=== PATIENT | male | born 1950 | race Caucasian/White ===

== ENCOUNTER 2019-09-29 13:37 | Emergency (ER) | payer MEDICARE ==
--- NOTE | 2019-09-29 15:03 | EDM.PDOC ---
ED HPI GENERAL MEDICAL PROBLEM - General Chief Complaint: Gastrointestinal Problem Stated Complaint: CONSTIPATION Time Seen by Provider: 09/29/19 13:56 Source of Information: Reports: Patient, RN Notes Reviewed History Limitations: Reports: No Limitations - History of Present Illness INITIAL COMMENTS - FREE TEXT/NARRATIVE: The patient is a 69-year-old male who presents to the ED for a couple different complaints. The patient states that for quite some time he has been having issues retracting his foreskin, and notices some tenderness and redness to the area, he also complains of some mild drainage noted as well. He notes that he is not been able to retract the foreskin over the head of his penis in quite some time, he does try to keep this clean with Q-tips. He states that he tried some [id number] Vagisil on this seemed to clear this up a little bit, however he did not keep up with this. The patient also is complaining of constipation, he states that he has felt this way for about 1 week now. His last real bowel movement was about 3 days ago after he tried drinking some prune juice. He is also complaining of some lower back pain on the left lower side, he is not having any nausea or vomiting. Patient states that he his testicles also are a little sore. The patient notes he does not have a primary care provider, and he has not had any preventative maintenance checks done in quite some time. He is not sure when his last colonoscopy was. He will further notes a semi-intentional weight loss of around 70 pounds over the last 4 years. Patient is not complaining of any fevers or chills, any chest pain, or shortness of breath. He states from time to time he does have some increased pressure on his testicles, and he feels if someone is "squeezing them ". Otherwise he is not complaining of any dysuria, frequency or urgency. He does note that he is not had any change in caliber of his stools as well, but states he goes in just a little bit's. He is also not had his prostate checked in quite some time. He does note a history of diabetes, migraines. States he has not been on medications for these for quite some time as he has been without a primary care provider. Generalized Pain Score (Numeric/FACES): 8 - Related Data Allergies Allergy/AdvReac Type Severity Reaction Status Date / Time No Known Allergies Allergy Verified 09/29/19 13:53 Home Meds: Home Meds Sulfamethoxazole/Trimethoprim [Sulfamethoxazole-Tmp Ds Tablet] 1 each PO BID # 14 tablet 09/29/19 [Rx] metFORMIN [Glucophage] 500 mg PO BIDMEALS #60 tab 09/29/19 [Rx] Past Medical History Neurological History: Reports: Migraines Endocrine/Metabolic History: Reports: Diabetes, Type II - Past Surgical History HEENT Surgical History: Reports: Tonsillectomy Social & Family History - Tobacco Use Smoking Status *Q: Never Smoker Second Hand Smoke Exposure: Yes - Caffeine Use Caffeine Use: Reports: Soda, Tea - Alcohol Use Alcohol Use History: Yes Alcohol Use Frequency: Rarely - Recreational Drug Use Recreational Drug Use: Yes Drug Use in Last 12 Months: Yes Recreational Drug Type: Reports: Marijuana/Hashish Recreational Drug Use Frequency: Rarely ED ROS GENERAL - Review of Systems Review Of Systems: See Below Constitutional: Denies: Fever, Chills Respiratory: Denies: Shortness of Breath Cardiovascular: Denies: Chest Pain GI/Abdominal: Reports: Abdominal Pain (cramping/pressure type pain when he feels the need to have BM). Denies: Nausea, Vomiting : Reports: Discharge (white milky discharge), Pain (testicular tenderness, bilateral). Denies: Dysuria, Frequency, Urgency Musculoskeletal: Reports: Back Pain (L lower back pain) ED EXAM, RENAL/ - Physical Exam Exam: See Below Exam Limited By: No Limitations General Appearance: Alert, WD/WN, No Apparent Distress Eye Exam: Bilateral Eye: EOMI, Normal Inspection, PERRL Ears: Normal External Exam Nose: Normal Inspection Throat/Mouth: Normal Inspection, Normal Lips, Normal Teeth, Normal Gums, Normal Oropharynx, Normal Voice, No Airway Compromise Head: Atraumatic, Normocephalic Neck: Normal Inspection Respiratory/Chest: No Respiratory Distress, Lungs Clear, Normal Breath Sounds, No Accessory Muscle Use, Chest Non-Tender Cardiovascular: Normal Peripheral Pulses, Regular Rate, Rhythm, No Murmur GI/Abdominal: Normal Bowel Sounds, Soft, No Distention, No Mass, Tender ( suprapubic, lower abdomen tenderness) (Male) Exam: No Hernia, Testicular Tenderness (L), Testicular Tenderness (R) , Other (Patient is on circumcised, I did try to retract the foreskin, while doing so there was a scant amount of milky white discharge that was expressed. I was still not able to visualize the glans penis. This did not cause too much pain to the patient with manipulation.). No: Scrotal Swelling Extremities: Normal Inspection, Normal Capillary Refill Neurological: Alert, Oriented, Normal Cognition, No Motor/Sensory Deficits Psychiatric: Normal Affect, Normal Mood Skin Exam: Warm, Dry, Intact, Normal Color, No Rash Course - Orders/Labs/Meds Orders: Active Orders 24 hr Category Date Time Status CULTURE URINE [RM] Routine Lab 09/29/19 16:10 Ordered Labs: Laboratory Tests 09/29/19 09/29/19 09/29/19 Range/Units 14:49 14:49 15:15 WBC 6.58 (4.23-9.07) K/mm3 RBC 5.32 (4.63-6.08) M/mm3 Hgb 15.0 (13.7-17.5) gm/dl Hct 44.3 (40.1-51.0) % MCV 83.3 (79.0-92.2) fl MCH 28.2 (25.7-32.2) pg MCHC 33.9 (32.2-35.5) g/dl RDW Std Deviation 41.9 (35.1-43.9) fL Plt Count 189 (163-337) K/mm3 MPV 9.2 L (9.4-12.3) fl Neut % (Auto) 61.2 (34.0-67.9) % Lymph % (Auto) 27.5 (21.8-53.1) % [place] % (Auto) 8.8 (5.3-12.2) % Eos % (Auto) 1.7 (0.8-7.0) Baso % (Auto) 0.5 (0.1-1.2) % Neut # (Auto) 4.03 (1.78-5.38) K/mm3 Lymph # (Auto) 1.81 (1.32-3.57) K/mm3 [place] # (Auto) 0.58 (0.30-0.82) K/mm3 Eos # (Auto) 0.11 (0.04-0.54) K/mm3 Baso # (Auto) 0.03 (0.01-0.08) K/mm3 Sodium 138 (136-145) mEq/L Potassium 4.3 (3.5-5.1) mEq/L Chloride 100 (98-107) mEq/L Carbon Dioxide 28 (21-32) mEq/L Anion Gap 14.3 (5-15) BUN 20 H (7-18) mg/dL Creatinine 1.0 (0.7-1.3) mg/dL Est Cr Clr Drug Dosing 73.00 mL/min Estimated GFR (MDRD) > 60 (>60) mL/min BUN/Creatinine Ratio 20.0 H (14-18) Glucose 360 H (80-115) mg/dL Calcium 8.9 (8.5-10.1) mg/dL Total Bilirubin 0.3 (0.2-1.0) mg/dL AST 10 L (15-37) U/L ALT 24 (16-63) U/L Alkaline Phosphatase 117 H (46-116) U/L Total Protein 7.3 (6.4-8.2) g/dl Albumin 3.4 (3.4-5.0) g/dl Globulin 3.9 gm/dL Albumin/Globulin Ratio 0.9 L (1-2) Urine Color Yellow (Yellow) Urine Appearance Clear (Clear) Urine pH 7.0 (5.0-8.0) Ur Specific [place] 1.020 (1.005-1.030) Urine Protein Trace H (Negative) Urine Glucose (UA) 2+ H (Negative) Urine Ketones Negative (Negative) Urine Occult Blood Trace-intact H (Negative) Urine Nitrite Negative (Negative) Urine Bilirubin Negative (Negative) Urine Urobilinogen 0.2 (0.2-1.0) Ur Leukocyte Esterase 1+ H (Negative) Urine RBC 5-10 H (0-5) /hpf Urine WBC 50-75 H (0-5) /hpf Ur Squamous Epith Cells 0-5 (0-5) /hpf Urine Bacteria Moderate H (FEW) /hpf Urine Mucus Not seen (FEW) /hpf Meds: Medications Discontinued Medications Generic Name Dose Route Start Last Admin Trade Name Freq PRN Reason Stop Dose Admin Fluconazole 150 mg 09/29/19 16:29 Diflucan PO 09/29/19 16:30 ONETIME ONE Magnesium Citrate 296 ml 09/29/19 16:29 Citrate Of Magnesia PO 09/29/19 16:30 ONETIME ONE - Re-Assessments/Exams Free Text/Narrative Re-Assessment/Exam: 09/29/19 15:08 Patient presents to the ED for a couple different complaints. I suspect he has some sort of yeast type infection, and ultimately the patient will need a circumcision for relief of his symptoms. As for the patient's constipation, I have ordered a KUB for evaluation, CBC, CMP, urinalysis, and a scrotal ultrasound will also be obtained due to the patient's testicular tenderness. Patient reports symptomatic relief when he took some [id number] vaginal infection medication, that he thought was vagisil, but this was only for a few days. 09/29/19 16:32 Patient's laboratory evaluation comes back and is unremarkable except for his urinalysis results which demonstrates a UTI. Patient will be placed on Bactrim twice daily for 7 days, urine is sent for culture for confirmation. As stated above I suspect the patient has a yeast infection to his penis as well, he will given 1 tablet of Diflucan in the ER to see if this does not help relieve some of this. Blood sugar was also elevated at 368, the patient wishes not to have any medications given in the ER, but did accept a prescription for metformin 500 mg twice daily at this time. Patient's abdomen x-ray also demonstrates a moderate amount of stool within the colon, he will be given a bottle of mag citrate for this. Departure - Departure Time of Disposition: 16:33 Disposition: Home, Self-Care 01 Condition: Fair Clinical Impression: Foreskin problem UTI (urinary tract infection) Qualifiers: Urinary tract infection type: acute cystitis Hematuria presence: with hematuria Qualified Code(s): N30.01 - Acute cystitis with hematuria Constipation Qualifiers: Constipation type: other constipation type Qualified Code(s): K59.09 - Other constipation - Discharge Information *PRESCRIPTION DRUG MONITORING PROGRAM REVIEWED*: No *COPY OF PRESCRIPTION DRUG MONITORING REPORT IN PATIENT JODI: No Prescriptions: metFORMIN [Glucophage] 500 mg PO BIDMEALS #60 tab Sulfamethoxazole/Trimethoprim [Sulfamethoxazole-Tmp Ds Tablet] 1 each PO BID # 14 tablet Referrals: PCP,Not In Area [Primary Care Provider] - Forms: ED Department Discharge Additional Instructions: You were evaluated in the ER today for your possible constipation. You did have some labs drawn and a urinalysis taken. Your urinalysis was positive for UTI and you have been started on the antibiotic, trimethoprim/ sulfamethoxazole, 1 tab twice daily for the next 7 days. It is suspected that you have an infection of the foreskin as well, you were given a 1 dose of Diflucan in the ER for management of this. Please try to keep this area clean and dry as much as possible. Highly and strongly recommend you have this area evaluated by a surgeon or urologist for possible circumcision to help prevent future infections. Your blood sugar at today's visit was 360, but you state that you have not been on your regular diabetic medications. A prescription for metformin was provided on your behalf, 1 tablet twice daily with meals. You were also given a bottle of magnesium citrate to help relieve some of the constipation. Please drink one half bottle, if you do not have a rather large bowel movement in 4 to 5 hours time, repeat with the last half bottle. Further recommend that you increase your oral fluid intake, and try to incorporate MiraLAX into your daily routine as this will help keep your bowels regular. Recommend that you set up care with a primary care provider of choice, any family practice provider would be able to provide you with the services, recommend Dr. Mika August. Please call [phone] to set up an appointment for an ER follow-up, and discussion of preventative maintenance health test like colonoscopies, ETC. Please return to the ER at any time however if your symptoms change or worsen. Sepsis Event Note - Evaluation Sepsis Screening Result: No Definite Risk - Focused Exam Date Exam was Performed: 09/29/19 Time Exam was Performed: 16:32 - My Orders Last 24 Hours: My Active Orders 09/29/19 16:10 CULTURE URINE [RM] Routine - Assessment/Plan Last 24 Hours: My Active Orders 09/29/19 16:10 CULTURE URINE [RM] Routine
--- NOTE | 2019-09-29 15:58 | CR ---
Abdomen: Supine view of the abdomen was obtained. Comparison: No prior abdominal x-ray. Mild degenerative change is scattered within the spine as well as mild joint space narrowing within the right hip. Bowel gas pattern is normal. No abnormal calcifications or soft tissue abnormality is seen. Impression: 1. Findings which are believed to be incidental. 2. Nothing acute is appreciated on supine abdominal x-ray. Diagnostic code #2 This report was dictated in [place] Standard Time
--- NOTE | 2019-09-29 16:04 | US ---
Testicular ultrasound: Multiple real-time images of the testicles were obtained. Testicles have a homogeneous ultrasound appearance. No intratesticular abnormality is seen. Small hydroceles are seen on both sides. Epididymal cyst is noted on the left side measuring up to 1.0 cm. Both arterial and venous blood flow are seen within the testicles. No abnormal Doppler blood flow is seen. Measurements: Right testicle: 3.8 x 2.3 x 3.0 cm Left testicle: 3.5 x 1.5 x 2.7 cm Impression: 1. Small bilateral hydroceles. 2. 1.0 cm epididymal cyst on the left side. 3. No additional abnormality is seen. Diagnostic code #2 This report was dictated in [place] Standard Time
[2019-09-29] MEDS ORDERED: Magnesium Citrate Solution 296 ML Bottle PO ONE (16:29)
[2019-09-29] MEDS ORDERED: Fluconazole 150 MG Tab PO ONE (16:29)
== END 2019-09-29 16:56 | disposition home or self-care (01) ==
LOC: JD.ED 13:37
DX: N30.01 Acute cystitis with hematuria (principal); K59.09 Other constipation; N47.8 Other disorders of prepuce; E11.9 Type 2 diabetes mellitus without complications; Z79.84 Long term (current) use of oral hypoglycemic drugs
CPT/HCPCS: 36415; 74018; 76870; 80053; 81001; 85025; 87086; 93975; 99284; A9270

== ENCOUNTER 2019-12-17 13:49 | Emergency (ER) | payer MEDICARE, MEDICAID ==
[2019-12-17] MEDS ORDERED: Sodium Chloride 0.9% 10 ML Syringe FLUSH PRN (14:46)
--- NOTE | 2019-12-17 15:14 | CR ---
Chest: Frontal view of the chest was obtained. Comparison: No prior chest imaging is available. Heart size and mediastinum are normal. Lungs are clear with no acute parenchymal change. Minimal atelectasis within the lateral left costophrenic angle is noted. Bony structures are grossly intact. Impression: 1. Nothing acute is appreciated on frontal chest x-ray. Diagnostic code #2 This report was dictated in MDT
--- NOTE | 2019-12-17 15:14 | CR ---
Thoracic spine: AP, lateral and swimmer's views of the thoracic spine were obtained. Scattered disc space narrowing is noted throughout the thoracic spine. Vertebral body heights are maintained. Scattered anterior endplate osteophyte are seen throughout the thoracic spine. Pedicles are intact. Prevertebral soft tissues are normal. No subluxation or fracture is seen. Impression: 1. Scattered degenerative change. 2. Nothing acute is definitely appreciated. Diagnostic code #2 This report was dictated in MDT
--- NOTE | 2019-12-17 15:16 | CR ---
Left hip: AP and frog-leg lateral views left hip were obtained. Comparison: No previous study is available. Minimal joint space narrowing within the left hip is seen. No acute fracture or other abnormality is appreciated. Impression: 1. Mild joint space narrowing within the left hip. 2. Nothing acute is appreciated on 2 view left hip exam. Diagnostic code #2 This report was dictated in MDT
--- NOTE | 2019-12-17 15:29 | EDM.PDOC ---
ED HPI GENERAL MEDICAL PROBLEM - General Chief Complaint: Lower Extremity Injury/Pain Stated Complaint: WEAK LEFT LEG Time Seen by Provider: 12/17/19 13:55 Source of Information: Reports: Patient History Limitations: Reports: No Limitations - History of Present Illness INITIAL COMMENTS - FREE TEXT/NARRATIVE: Narayan Kay is a 69-year-old male who presents the emergency room with chief complaints of generalized weakness and body aches. Patient reports that he fell yesterday and fell a week ago. He reports that he is "constantly falling." Patient reports that he has been using a walker in the last week or 2. He states that he goes to get up in his left leg just gives out and he falls. He presents today with chief complaints of neck pain which is chronic, left hip pain, thoracic and lower back pain. He denies headache, fever, chills , chest pain, shortness of breath. He does report having blurred vision but has not had an eye exam in the last 4 years. Patient has a history of diabetes , hypertension, peripheral neuropathy and chronic neck pain. Patient reports he does not have a PCP he "has been seen here in the emergency room and they give him his medication." Patient has not taken his medication today and therefore his blood pressure is 206/110. He is no apparent distress at this time. Patient is on no blood thinners. Onset Date: 12/15/19 Onset Time: 09:00 Duration: Getting Worse Location: Reports: Neck, Back, Lower Extremity, Right, Other Quality: Reports: Ache Severity: Mild Improves with: Reports: None Worsens with: Reports: None Associated Symptoms: Reports: Shortness of Breath, Weakness. Denies: Chest Pain , Nausea/Vomiting Left Leg Pain Score (Numeric/FACES): 10 - Related Data Allergies Allergy/AdvReac Type Severity Reaction Status Date / Time No Known Allergies Allergy Verified 12/17/19 14:15 Home Meds: Home Meds Exenatide Microspheres [Bydureon] 2 mg SUBCUT Q7D 12/17/19 [History] Rosuvastatin [Crestor] 10 mg PO DAILY 12/17/19 [History] lisinopriL [Lisinopril] 20 mg PO DAILY 12/17/19 [History] metFORMIN [Glucophage] 1,000 mg PO BIDMEALS 12/17/19 [History] Past Medical History Neurological History: Reports: Migraines Endocrine/Metabolic History: Reports: Diabetes, Type II - Past Surgical History HEENT Surgical History: Reports: Tonsillectomy Social & Family History - Tobacco Use Smoking Status *Q: Never Smoker - Caffeine Use Caffeine Use: Reports: Soda - Recreational Drug Use Recreational Drug Use: Yes Drug Use in Last 12 Months: Yes Recreational Drug Type: Reports: Marijuana/Hashish Recreational Drug Use Frequency: Rarely Review of Systems - Review of Systems Review Of Systems: See Below Constitutional: Reports: Weakness. Denies: Chills, Fever Eyes: Reports: Blurred Vision, Glasses, Other (has not had a eye examination in over 4 years) Ears: Reports: No Symptoms Nose: Reports: No Symptoms Mouth/Throat: Reports: No Symptoms Respiratory: Denies: Shortness of Breath Cardiovascular: Denies: Chest Pain Genitourinary: Reports: No Symptoms Musculoskeletal: Reports: Neck Pain (chronic neck pain. ), Back Pain, Muscle Pain, Other (left hip pain. ) Skin: Reports: No Symptoms. Denies: Bruising Neurological: Reports: Numbness, Syncope, Weakness. Denies: Confusion, Dizziness, Headache (history of peripheral neuropathy. Patient reports falling twice this week.), Change in Speech Psychiatric: Reports: No Symptoms ED EXAM, GENERAL - Physical Exam Exam: See Below Exam Limited By: No Limitations General Appearance: Alert, WD/WN, No Apparent Distress Eye Exam: Bilateral Eye: EOMI, PERRL Ears: Normal External Exam, Normal Canal, Hearing Grossly Normal, Normal TMs Nose: Normal Inspection, Normal Mucosa, No Blood Throat/Mouth: Normal Inspection, Normal Lips, Normal Teeth, Normal Gums, Normal Oropharynx, Normal Voice, No Airway Compromise Head: Atraumatic, Normocephalic Neck: Normal Inspection, Supple, Non-Tender Respiratory/Chest: No Respiratory Distress, Lungs Clear, Normal Breath Sounds, No Accessory Muscle Use, Chest Non-Tender Cardiovascular: Normal Peripheral Pulses, Regular Rate, Rhythm, No Edema, No Gallop, No JVD, No Murmur, No Rub GI/Abdominal: Normal Bowel Sounds, Soft, Non-Tender, No Organomegaly, No Distention, No Abnormal Bruit, No Mass, Pelvis Stable Back Exam: Decreased Range of Motion (due to pain) Extremities: Normal Inspection, Non-Tender, No Pedal Edema, Normal Capillary Refill, Limited Range of Motion (due to pain and weakness) Neurological: Alert, Oriented, CN II-XII Intact, Normal Cognition, Normal Reflexes, No Motor/Sensory Deficits, Other (gait is slow and steady. ) Psychiatric: Normal Affect, Normal Mood Skin Exam: Warm, Dry, Intact, Normal Color, No Rash Lymphatic: No Adenopathy EKG INTERPRETATION EKG Date: 12/17/19 Time: 15:00 Rhythm: NSR Rate (Beats/Min): 96 EKG Interpretation Comments: EKG reveals normal sinus rhythm rate 96 with a right bundle branch block and LPFB Course - Vital Signs Text/Narrative:: Narayan Kay is a 69-year-old male who presents the emergency room with chief complaints of generalized weakness and body aches. Patient reports that he fell yesterday and fell a week ago. He reports that he is "constantly falling." Patient reports that he has been using a walker in the last week or 2. He states that he goes to get up in his left leg just gives out and he falls. He presents today with chief complaints of neck pain which is chronic, left hip pain, thoracic and lower back pain. He denies headache, fever, chills , chest pain, shortness of breath. He does report having blurred vision but has not had an eye exam in the last 4 years. Patient has a history of diabetes , hypertension, peripheral neuropathy and chronic neck pain. Patient reports he does not have a PCP he "has been seen here in the emergency room and they give him his medication." Patient has not taken his medication today and therefore his blood pressure is 206/110. He is no apparent distress at this time. Patient is on no blood thinners. I will medicate with lisinopril for elevated blood pressure. I will order a CBC basic met troponin, chest x-ray, left hip, thoracic, and lumbar spine. Last Recorded V/S: Last Vital Signs Temp 98.2 F 12/17/19 14:12 Pulse 97 12/17/19 14:12 Resp 20 12/17/19 14:12 BP 186/92 H 12/17/19 15:53 Pulse Ox 100 12/17/19 14:12 - Orders/Labs/Meds Orders: Active Orders 24 hr Category Date Time Status EKG Documentation Completion [RC] STAT Care 12/17/19 14:42 Active Holter Monitor 24 Hours [RC] .PRN Care 12/17/19 16:41 Ordered Sodium Chloride 0.9% [Saline Flush] Med 12/17/19 14:46 Active 10 ml FLUSH ASDIRECTED PRN lisinopriL [Prinivil] Med 12/17/19 15:30 Active 20 mg PO DAILY lisinopriL [Prinivil] Med 12/17/19 16:30 Active 20 mg PO DAILY Saline Lock Insert [OM.PC] Routine Oth 12/17/19 14:46 Ordered Medication Orders Lisinopril (Prinivil) 20 mg PO DAILY LARRY Last Admin: 12/17/19 15:53 Dose: 20 mg Lisinopril (Prinivil) 20 mg PO DAILY LARRY Sodium Chloride (Saline Flush) 10 ml FLUSH ASDIRECTED PRN PRN Reason: Keep Vein Open Last Admin: 12/17/19 15:23 Dose: 10 ml Labs: Laboratory Tests 12/17/19 12/17/19 12/17/19 Range/Units 15:19 15:19 15:25 WBC 7.95 (4.23-9.07) K/mm3 RBC 5.61 (4.63-6.08) M/mm3 Hgb 15.7 (13.7-17.5) gm/dl Hct 45.9 (40.1-51.0) % MCV 81.8 (79.0-92.2) fl MCH 28.0 (25.7-32.2) pg MCHC 34.2 (32.2-35.5) g/dl RDW Std Deviation 41.5 (35.1-43.9) fL Plt Count 221 (163-337) K/mm3 MPV 9.0 L (9.4-12.3) fl Neut % (Auto) 64.5 (34.0-67.9) % Lymph % (Auto) 24.4 (21.8-53.1) % Elk % (Auto) 8.8 (5.3-12.2) % Eos % (Auto) 1.8 (0.8-7.0) Baso % (Auto) 0.1 (0.1-1.2) % Neut # (Auto) 5.13 (1.78-5.38) K/mm3 Lymph # (Auto) 1.94 (1.32-3.57) K/mm3 Elk # (Auto) 0.70 (0.30-0.82) K/mm3 Eos # (Auto) 0.14 (0.04-0.54) K/mm3 Baso # (Auto) 0.01 (0.01-0.08) K/mm3 Sodium 138 (136-145) mEq/L Potassium 3.9 (3.5-5.1) mEq/L Chloride 101 (98-107) mEq/L Carbon Dioxide 30 (21-32) mEq/L Anion Gap 10.9 (5-15) BUN 14 (7-18) mg/dL Creatinine 0.9 (0.7-1.3) mg/dL Est Cr Clr Drug Dosing 78.56 mL/min Estimated GFR (MDRD) > 60 (>60) mL/min BUN/Creatinine Ratio 15.6 (14-18) Glucose 182 H (80-115) mg/dL Calcium 9.0 (8.5-10.1) mg/dL Total Bilirubin 0.4 (0.2-1.0) mg/dL AST 12 L (15-37) U/L ALT 19 (16-63) U/L Alkaline Phosphatase 92 (46-116) U/L Troponin I < 0.017 (0.00-0.056) ng/mL Total Protein 8.0 (6.4-8.2) g/dl Albumin 3.7 (3.4-5.0) g/dl Globulin 4.3 gm/dL Albumin/Globulin Ratio 0.9 L (1-2) Urine Color Yellow (Yellow) Urine Appearance Clear (Clear) Urine pH 6.0 (5.0-8.0) Ur Specific Barnett > or = 1.030 (1.005-1.030) Urine Protein 1+ H (Negative) Urine Glucose (UA) 2+ H (Negative) Urine Ketones Negative (Negative) Urine Occult Blood Negative (Negative) Urine Nitrite Negative (Negative) Urine Bilirubin Negative (Negative) Urine Urobilinogen 1.0 (0.2-1.0) Ur Leukocyte Esterase Negative (Negative) Urine RBC 0-5 (0-5) /hpf Urine WBC 0-5 (0-5) /hpf Ur Squamous Epith Cells 0-5 (0-5) /hpf Urine Bacteria Few (FEW) /hpf Urine Mucus Few (FEW) /hpf Meds: Medications Generic Name Dose Route Start Last Admin Trade Name Glen PRN Reason Stop Dose Admin Lisinopril 20 mg 12/17/19 15:30 12/17/19 15:53 Prinivil PO 20 mg DAILY LARRY Administration Lisinopril 20 mg 12/17/19 16:30 Prinivil PO DAILY LARRY Sodium Chloride 10 ml 12/17/19 14:46 12/17/19 15:23 Saline Flush FLUSH 10 ml ASDIRECTED PRN Administration Keep Vein Open Discontinued Medications Generic Name Dose Route Start Last Admin Trade Name Glen PRN Reason Stop Dose Admin Ketorolac Tromethamine 30 mg 12/17/19 16:03 12/17/19 16:20 Toradol IVPUSH 12/17/19 16:04 30 mg ONETIME ONE Administration - Re-Assessments/Exams Free Text/Narrative Re-Assessment/Exam: 12/17/19 15:59 BC 7.95, RBC 5.64, hemoglobin 15.7, hematocrit 45.9 and platelet count 221. Sodium 138, potassium 3.9, chloride 101, CO2 30, bun 14, creatinine 0.9, glucose 182, AST 12, ALT 19, troponin 0 0.017 and urine is +2 glucose. Thoracic spine x-ray reveals scattered degenerative changes no acute findings. Chest x-ray reveals minimal atelectasis within the left lateral costophrenic angle otherwise no acute findings. Left hip x-ray reveals mild joint space narrowing no acute fracture or abnormalities are appreciated. Lumbar spine reveals degenerative changes no sublux luxation or fracture is seen 12/17/19 16:46 Patient's labs and x-rays were reviewed I did not find any acute abnormalities. Not certain why the patient continues to have episodes of falling and not sure if this is due to his peripheral neuropathy or if it is cardiac in nature. Therefore I will discharge home with a Holter monitor for further evaluation. I informed the patient that it is recommended that he take his medication as prescribed. Since the patient has not taken his blood pressure medicine today and his blood pressure was extremely elevated. I will discharge home with instructions to follow-up with Dr. Mika August for further management and treatment of the patient's conditions. Instructed patient to return to the emergency room for any new acute worsening symptoms. Patient verbalized understanding this, plan for discharge. Departure - Departure Time of Disposition: 16:48 Disposition: Home, Self-Care 01 Condition: Good Clinical Impression: Weakness generalized, Hypertension Degenerative joint disease Qualifiers: Osteoarthritis location: hip Osteoarthritis type: primary Laterality: left Qualified Code(s): M16.12 - Unilateral primary osteoarthritis, left hip - Discharge Information Instructions: Hip Pain, Muscle Strain, [id number], Hypertension, Adult, Arthritis, Weakness, [id number] Referrals: PCP,None [Primary Care Provider] - Mika Clements MD [Physician] - Forms: ED Department Discharge Additional Instructions: Seen and evaluated today for generalized weakness and falling. In addition to lower back pain and left hip pain. Your EKG revealed normal sinus rhythm no irregular beats. You were very hypertensive when you were seen here in the emergency room department I recommend you take your blood pressure medication as prescribed. Your hip x-ray, lumbar and thoracic spine revealed degenerative joint disease which is a form of arthritis. I recommend that you follow-up with Dr. Mika August evaluation and treatment of your ailments. You have been prescribed a Holter monitor which she will wear for the next 24 hours. Follow- up with Dr. August for the results. Tylenol or Ibuprofen as needed for pain. Return to the emergency room for any new or acute worsening symptoms. Sepsis Event Note - Evaluation Sepsis Screening Result: No Definite Risk - Focused Exam Vital Signs: Vital Signs Temp Pulse Resp BP BP Pulse Ox 12/17/19 15:53 186/92 H 12/17/19 14:12 98.2 F 97 20 206/116 H 100 Date Exam was Performed: 12/17/19 Time Exam was Performed: 16:42 - My Orders Last 24 Hours: My Active Orders 12/17/19 14:42 EKG Documentation Completion [RC] STAT 12/17/19 14:46 Sodium Chloride 0.9% [Saline Flush] 10 ml FLUSH ASDIRECTED PRN Saline Lock Insert [OM.PC] Routine 12/17/19 15:30 lisinopriL [Prinivil] 20 mg PO DAILY 12/17/19 16:30 lisinopriL [Prinivil] 20 mg PO DAILY 12/17/19 16:41 Holter Monitor 24 Hours [RC] .PRN - Assessment/Plan Last 24 Hours: My Active Orders 12/17/19 14:42 EKG Documentation Completion [RC] STAT 12/17/19 14:46 Sodium Chloride 0.9% [Saline Flush] 10 ml FLUSH ASDIRECTED PRN Saline Lock Insert [OM.PC] Routine 12/17/19 15:30 lisinopriL [Prinivil] 20 mg PO DAILY 12/17/19 16:30 lisinopriL [Prinivil] 20 mg PO DAILY 12/17/19 16:41 Holter Monitor 24 Hours [RC] .PRN
[2019-12-17] MEDS ORDERED: Lisinopril 20 MG Tab PO SCH ×2 (15:30→16:30)
--- NOTE | 2019-12-17 15:43 | CR ---
Lumbar spine: AP and lateral views of the lumbar spine were obtained. Comparison: No previous lumbar spine imaging. Disc space narrowing is noted within the lower thoracic spine. Disc spaces within the lumbar spine are fairly well preserved. Scattered endplate osteophytes are seen. Posterior osteophytes are noted at L4-5. Pedicles are intact. Visualized transverse and spinous processes are intact. No subluxation or fracture is seen. Vascular calcification is noted within a nondilated abdominal aorta. Impression: 1. Degenerative change as noted above. 2. Nothing acute is appreciated on 2 view lumbar spine study. Diagnostic code #2 This report was dictated in MDT
[2019-12-17] MEDS ORDERED: Ketorolac 30 MG/ML SDV IVPUSH ONE (16:03)
== END 2019-12-17 17:20 | disposition home or self-care (01) ==
LOC: JD.ED 13:49
DX: I10 Essential (primary) hypertension (principal); M16.12 Unilateral primary osteoarthritis, left hip; E11.9 Type 2 diabetes mellitus without complications; Z79.84 Long term (current) use of oral hypoglycemic drugs; Z79.899 Other long term (current) drug therapy
CPT/HCPCS: 36415; 71045; 72072; 72100; 73502; 80053; 81001; 84484; 85025; 93005; 93225; 93226; 96374; 99285; A9270; J1885; 93010; 99284

== ENCOUNTER 2021-08-25 17:14 | Emergency (ER) | payer MEDICAID, MEDICARE | END 2021-08-25 20:24 | disposition home or self-care (01) | LOC: JD.ED 17:14 | DX: J06.9 Acute upper respiratory infection, unspecified (principal); E78.00 Pure hypercholesterolemia, unspecified; I10 Essential (primary) hypertension; E11.9 Type 2 diabetes mellitus without complications; R00.0 Tachycardia, unspecified; E66.9 Obesity, unspecified; Z68.32 Body mass index [BMI] 32.0-32.9, adult; Z79.84 Long term (current) use of oral hypoglycemic drugs; Z79.899 Other long term (current) drug therapy | CPT/HCPCS: 36415; 71045; 71045-26; 80053; 83605; 83735; 83880; 84484; 85007; 85027; 85379; 86140; 87040; 93005; 99284-25 ==

== ENCOUNTER 2021-09-25 08:59 | Emergency (ER) | payer MEDICARE ==
[2021-09-25] MEDS ORDERED: Magnesium Oxide 400 MG Tab PO ONE (11:53)
== END 2021-09-25 12:35 | disposition home or self-care (01) ==
LOC: JD.ED 08:59 → SUPCPDRO 08:59 → JD.ED 12:35
DX: R41.82 Altered mental status, unspecified (principal); E78.00 Pure hypercholesterolemia, unspecified; I10 Essential (primary) hypertension; E11.9 Type 2 diabetes mellitus without complications; E66.9 Obesity, unspecified; Z68.28 Body mass index [BMI] 28.0-28.9, adult; Z20.822 Contact with and (suspected) exposure to COVID-19; Z79.84 Long term (current) use of oral hypoglycemic drugs
CPT/HCPCS: 36415; 70450; 70450-26; 71045; 71045-26; 80053; 83735; 84484; 85025; 85610; 85730; 93005; 93225; 93226; 99285-25; A9270-GY; U0002

== ENCOUNTER 2022-02-15 09:38 | Emergency (ER) | payer MEDICARE ==
[2022-02-15] MEDS ORDERED: LORazepam 2 MG/ML SDV IVPUSH ONE (09:50)
[2022-02-15] MEDS ORDERED: LORazepam 2 MG/ML SDV ONE (09:51)
[2022-02-15 10:25] LABS: ESTIMATED GFR 59 mL/min (>60)
[2022-02-15] MEDS ORDERED: levETIRAcetam 1,000 MG in Sodium Chloride 0.9% 100 ML IV ONE (14:12)
== END 2022-02-15 18:35 | disposition home or self-care (01) ==
LOC: JD.ED 09:38
DX: G40.909 Epilepsy, unspecified, not intractable, without status epilepticus (principal); E78.00 Pure hypercholesterolemia, unspecified; I10 Essential (primary) hypertension; M19.90 Unspecified osteoarthritis, unspecified site; E11.9 Type 2 diabetes mellitus without complications; E66.9 Obesity, unspecified; Z68.30 Body mass index [BMI] 30.0-30.9, adult; Z79.84 Long term (current) use of oral hypoglycemic drugs; Z79.899 Other long term (current) drug therapy
CPT/HCPCS: 36415; 70450; 71045; 80053; 84484; 85025; 85610; 85730; 93005; 96365; 96375; 99285; J1953; J2060

== ENCOUNTER 2022-05-04 08:04 | Emergency (ER) | payer MEDICARE ==
[2022-05-04] MEDS ORDERED: Sodium Chloride 0.9% 1,000 ML IV SCH (08:15)
[2022-05-04] MEDS ORDERED: levETIRAcetam 1,000 MG in Sodium Chloride 0.9% 100 ML IV ONE (08:20)
== END 2022-05-04 09:30 | disposition home or self-care (01) ==
LOC: JD.ED 08:04
DX: G40.909 Epilepsy, unspecified, not intractable, without status epilepticus (principal); I10 Essential (primary) hypertension; E11.9 Type 2 diabetes mellitus without complications; E66.9 Obesity, unspecified; Z68.29 Body mass index [BMI] 29.0-29.9, adult; Z79.899 Other long term (current) drug therapy; Z79.84 Long term (current) use of oral hypoglycemic drugs
CPT/HCPCS: 80053; 80177; 82947; 85025; 96361; 96374; 99284; J1953; J7030; 36415

== ENCOUNTER 2024-09-11 16:06 | Inpatient (IN) | payer MEDICARE ==
[2024-09-11] MEDS ORDERED: Sodium Chloride 0.9% 10 ML Syringe FLUSH PRN (16:41)
[2024-09-11] MEDS: Sodium Chloride 0.9% 1,000 ML IV STA ×2 (17:34→20:52)
[2024-09-11 18:18] LABS: HEMOGLOBIN 15.6 gm/dl (14.0-18.0); MEAN CORPUSCULAR HEMOGLOBIN 28.1 pg (28.0-32.0); MEAN CORPUSCULAR HGB CONC 33.9 g/dl (32.0-36.0); MEAN CORPUSCULAR VOLUME 82.9 fl (83.0-99.0); MEAN PLATELET VOLUME 8.9 fl (9.4-12.4); PLATELET COUNT,PLT 175 K/mm3 (150-400); RED BLOOD CELL COUNT 5.55 M/mm3 (4.52-5.90); WHITE BLOOD CELL COUNT,WBC 6.64 K/mm3 (3.9-11.3)
[2024-09-11 18:34] LABS: INR 1.15; PROTHROMBIN TIME 12.1 SECONDS (9.7-12.0)
[2024-09-11 18:43] LABS: LACTIC ACID 1.6 mmol/L (0.4-2.0)
[2024-09-11 18:50] LABS: A/G RATIO 0.8 (1-2); ALBUMIN 3.2 g/dl (3.4-5.0); ANION GAP 15.2 (5-15); BILIRUBIN TOTAL 0.6 mg/dL (0.2-1.0); BUN/CREATININE RATIO 13.5 (14-18); C-REACTIVE PROTEIN 4.91 mg/dL (<0.30); CALCIUM 8.1 mg/dL (8.5-10.1); CREATININE 1.7 mg/dL (0.7-1.3); EST CRCL DRUG DOSING (CG) 38.7 mL/min; POTASSIUM,K 4.2 mEq/L (3.5-5.1); PROTEIN TOTAL,TP 7.4 g/dl (6.4-8.2)
[2024-09-11 18:53] LABS: BAND PERCENT MAN 0 % (0-10); BASOPHILS PERCENT MAN 0 (0.2-1.2); EOSINOPHILS PERCENT MAN 1 % (0.8-7.0); LYMPHOCYTES % ATYPICAL MANUAL 0 %; LYMPHOCYTES PERCENT MAN 12 % (20-40); MONOCYTES PERCENT MAN 6 % (2-10)
[2024-09-11 18:54] LABS: PLATELET COUNT ESTIMATE ADEQUATE
[2024-09-11 19:17] LABS: APPEARANCE,URINE SLT CLOUDY (Clear); BILIRUBIN,URINE 1+ (Negative); COLOR,URINE AMBER (Yellow); GLUCOSE,URINE NEGATIVE (Negative); KETONES,URINE 1+ (Negative); LEUKOCYTE ESTERASE,URINE NEGATIVE (Negative); NITRITE,URINE NEGATIVE (Negative); OCCULT BLOOD,URINE 3+ (Negative); PH,URINE 5.5 (5.0-8.0); PROTEIN,URINE 3+ (Negative)
[2024-09-11 19:48] LABS: BACTERIA,URINE FEW /hpf (FEW); MUCUS,URINE FEW /hpf (FEW); RBC,URINE >100 /hpf (0-5); SQUAMOUS EPITHELIAL CELLS,UR 0-5 /hpf (0-5)
[2024-09-11 19:54] LABS: CORONAVIRUS COVID-19 NAA NEGATIVE (NEGATIVE); INFLUENZA A NAA NEGATIVE (NEGATIVE); RESPIRATORY SYNCYTIAL VIR NAA POSITIVE (NEGATIVE)
[2024-09-11] MEDS: Iopamidol 612 MG/ML 100 ML Bottle IVPUSH ONE (19:54)
[2024-09-11] MEDS: Iopamidol 612 MG/ML 30 ML SDV IVPUSH ONE (19:54)
[2024-09-11] MEDS: Sodium Chloride 0.9% 10 ML Syringe FLUSH ONE (19:55)
[2024-09-11 20:01] LABS: TSH 1.827 uIU/mL (0.358-3.74)
[2024-09-11] MEDS: Acetaminophen 325 MG Tab PO PRN (22:34)
[2024-09-12 05:49] LABS: BASOPHILS PERCENT AUTO 0.6 % (0.0-1.0); EOSINOPHILS ABSOLUTE AUTO 0.1 K/mm3 (0.0-0.4); HEMATOCRIT 41.3 % (42.0-52.0); IMMATURE GRAN ABSOLUTE AUTO 0.01 K/mm3 (0.00-0.05); IMMATURE GRAN PERCENT AUTO 0.2 % (0.0-0.4); LYMPHOCYTES ABSOLUTE AUTO 1.3 K/mm3 (1.0-4.8); LYMPHOCYTES PERCENT AUTO 25.6 % (24.0-44.0); MEAN CORPUSCULAR HEMOGLOBIN 27.6 pg (28.0-32.0); MEAN CORPUSCULAR HGB CONC 32.9 g/dl (32.0-36.0); MEAN CORPUSCULAR VOLUME 83.9 fl (83.0-99.0); MEAN PLATELET VOLUME 8.9 fl (9.4-12.4); MONOCYTES ABSOLUTE AUTO 0.6 K/mm3 (0.0-0.8); MONOCYTES PERCENT AUTO 12.6 % (0.0-8.0); PLATELET COUNT,PLT 147 K/mm3 (150-400); RED BLOOD CELL COUNT 4.92 M/mm3 (4.52-5.90); WHITE BLOOD CELL COUNT,WBC 5.07 K/mm3 (3.9-11.3)
[2024-09-12 05:50] LABS: HEMOGLOBIN 13.6 gm/dl (14.0-18.0)
[2024-09-12 06:24] LABS: ANION GAP 13.2 (5-15); BUN/CREATININE RATIO 16.2 (14-18); C-REACTIVE PROTEIN 5.52 mg/dL (<0.30); CALCIUM 7.9 mg/dL (8.5-10.1); CREATININE 1.3 mg/dL (0.7-1.3); EST CRCL DRUG DOSING (CG) 50.61 mL/min; POTASSIUM,K 4.2 mEq/L (3.5-5.1)
[2024-09-12] MEDS: Insulin Lispro 100 Unit/ML 3 ML KwikPen SUBCUT SCH (07:50)
[2024-09-12] MEDS: levETIRAcetam 500 MG Tab PO SCH (08:25)
[2024-09-12] MEDS: Enoxaparin 40 MG/0.4 ML Syringe SUBCUT SCH (08:25)
[2024-09-12] MEDS: cefTRIAXone 2 GM Vial IVPUSH SCH (08:25)
[2024-09-12] MEDS: predniSONE 20 MG Tab PO ONE (08:25)
[2024-09-12] MEDS: Albuterol/Ipratropium 3.0-0.5 MG/3 ML Neb Soln NEB PRN (09:21)
[2024-09-12] MEDS: Donepezil 10 MG Tab PO SCH (21:53)
[2024-09-12] MEDS: Cyclobenzaprine 10 MG Tab PO PRN (21:58)
[2024-09-13 05:31] LABS: BASOPHILS PERCENT AUTO 0.3 % (0.0-1.0); EOSINOPHILS PERCENT AUTO 0.3 % (0.0-6.0); HEMATOCRIT 36.9 % (42.0-52.0); HEMOGLOBIN 12.5 gm/dl (14.0-18.0); IMMATURE GRAN ABSOLUTE AUTO 0.03 K/mm3 (0.00-0.05); IMMATURE GRAN PERCENT AUTO 0.5 % (0.0-0.4); LYMPHOCYTES ABSOLUTE AUTO 1.5 K/mm3 (1.0-4.8); LYMPHOCYTES PERCENT AUTO 22.2 % (24.0-44.0); MEAN CORPUSCULAR HEMOGLOBIN 27.5 pg (28.0-32.0); MEAN CORPUSCULAR HGB CONC 33.9 g/dl (32.0-36.0); MEAN CORPUSCULAR VOLUME 81.3 fl (83.0-99.0); MEAN PLATELET VOLUME 8.7 fl (9.4-12.4); MONOCYTES ABSOLUTE AUTO 0.6 K/mm3 (0.0-0.8); MONOCYTES PERCENT AUTO 9.7 % (0.0-8.0); NEUTROPHILS ABSOLUTE AUTO 4.4 K/mm3 (1.8-7.7); PLATELET COUNT,PLT 136 K/mm3 (150-400); RED BLOOD CELL COUNT 4.54 M/mm3 (4.52-5.90); WHITE BLOOD CELL COUNT,WBC 6.61 K/mm3 (3.9-11.3)
[2024-09-13 05:48] LABS: ANION GAP 12.6 (5-15); BUN/CREATININE RATIO 17.7 (14-18); C-REACTIVE PROTEIN 6.45 mg/dL (<0.30); CREATININE 1.3 mg/dL (0.7-1.3); EST CRCL DRUG DOSING (CG) 50.61 mL/min; POTASSIUM,K 3.6 mEq/L (3.5-5.1)
[2024-09-13] MEDS: predniSONE 20 MG Tab PO SCH (08:37)
[2024-09-13] MEDS: Rosuvastatin 10 MG Tab PO SCH (08:37)
[2024-09-13] MEDS: Tamsulosin 0.4 MG Cap.ER PO SCH (08:38)
[2024-09-13] MEDS: Lisinopril 20 MG Tab PO SCH (08:38)
[2024-09-14 06:28] LABS: A/G RATIO 0.7 (1-2); ALBUMIN 2.6 g/dl (3.4-5.0); BILIRUBIN TOTAL 0.2 mg/dL (0.2-1.0); BUN/CREATININE RATIO 23.6 (14-18); C-REACTIVE PROTEIN 2.69 mg/dL (<0.30); CALCIUM 8.1 mg/dL (8.5-10.1); CREATININE 1.1 mg/dL (0.7-1.3); EST CRCL DRUG DOSING (CG) 59.81 mL/min; PROTEIN TOTAL,TP 6.6 g/dl (6.4-8.2)
== END 2024-09-14 10:20 | disposition home or self-care (01) | DRG 152 ==
LOC: JD.ED 16:06 → JD.MS 20:22
PROVIDERS: ADMIT Family Medicine; ATTEND Internal Medicine
DX: J06.9 Acute upper respiratory infection, unspecified (principal); J96.01 Acute respiratory failure with hypoxia; N30.01 Acute cystitis with hematuria; J21.0 Acute bronchiolitis due to respiratory syncytial virus; N20.0 Calculus of kidney; N17.9 Acute kidney failure, unspecified; B97.4 Respiratory syncytial virus as the cause of diseases classified elsewhere; I10 Essential (primary) hypertension; E78.5 Hyperlipidemia, unspecified; E11.9 Type 2 diabetes mellitus without complications; Z68.28 Body mass index [BMI] 28.0-28.9, adult; G40.909 Epilepsy, unspecified, not intractable, without status epilepticus; N40.0 Benign prostatic hyperplasia without lower urinary tract symptoms; E78.00 Pure hypercholesterolemia, unspecified; F12.90 Cannabis use, unspecified, uncomplicated; E86.0 Dehydration; M54.50 Low back pain, unspecified; N21.0 Calculus in bladder; M19.90 Unspecified osteoarthritis, unspecified site; G43.909 Migraine, unspecified, not intractable, without status migrainosus; E66.9 Obesity, unspecified; Z90.89 Acquired absence of other organs; Z79.02 Long term (current) use of antithrombotics/antiplatelets; Z79.84 Long term (current) use of oral hypoglycemic drugs; Z79.899 Other long term (current) drug therapy; Z68.26 Body mass index [BMI] 26.0-26.9, adult; Z98.890 Other specified postprocedural states
CPT/HCPCS: 0241U; 36415; 71046; 72100; 73502; 74177; 80048; 80053; 81001; 82947; 83605; 84443; 84484; 85007; 85025; 85027; 85379; 85610; 86140; 87040; 87428; 93005; 94640; 94761; 97161; 93010; 96360; 99285; 99285-25; A9270-GY; J0696; J1650; J1815; J7030; J7512; J7620-GY; Q9967